=== PATIENT | male | born 1980 | race Caucasian/White ===

== ENCOUNTER 2022-04-21 14:44 | Emergency (ER) | payer OTHER, SELFPAY ==
[2022-04-21 14:49] VITALS: BP 127/83; PULSE 90; RESP 16; TEMP 37.1; O2SAT 95
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
--- NOTE | 2022-04-21 15:05 | XRR_ITS ---
PROCEDURE INFORMATION: Exam: XR Left Forearm Exam date and time: 04/21/2022 3:09 PM Age: 41 years old Clinical indication: Injury or trauma; Fall; Blunt trauma (contusions or hematomas); Arm, lower; Left TECHNIQUE: Imaging protocol: Radiologic exam of the Left forearm. Views: 2 views. COMPARISON: No relevant prior studies available. FINDINGS: Bones/joints: Normal. Soft tissues: Normal. XR/XR forearm LT 2V [id number] IMPRESSION: No acute findings.
== END 2022-04-21 15:42 | disposition home or self-care (01) ==
PROVIDERS: Emergency Provider Nurse Practitioner Family; PCP Family Medicine
DX: S56.912A Strain of unspecified muscles, fascia and tendons at forearm level, left arm, initial encounter (principal); V19.3XXA Pedal cyclist (driver) (passenger) injured in unspecified nontraffic accident, initial encounter
CPT/HCPCS: 73090; 99283

== ENCOUNTER 2023-11-09 20:20 | Emergency (ER) | payer OTHER, SELFPAY ==
--- NOTE | 2023-11-09 20:33 | XRR_ITS ---
PROCEDURE INFORMATION: Exam: XR Right Shoulder Exam date and time: 11/09/2023 8:40 PM Age: 43 years old Clinical indication: Injury or trauma; Other: Lifting injury; Other: RT shoulder pain; Additional info: RT shoulder pain after lifting injury TECHNIQUE: Imaging protocol: Radiologic exam of the right shoulder. Views: 2 or more views. COMPARISON: CR XR chest 2V* [id number] 07/26/2021 10:49 AM FINDINGS: Bones/joints: The glenohumeral articulation is grossly intact. 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 Soft tissues: No gross soft tissue abnormality. XR/XR shoulder RT min 2V* [id number] IMPRESSION: 1. No evidence of fracture or subluxation. If there is concern for labral, muscle or tendon pathology, follow-up outpatient MRI may be helpful.
[2023-11-09 20:56] VITALS: BP 158/93; PULSE 68; RESP 20; TEMP 36.8; O2SAT 97; BMI 26.2
[2023-11-09 21:01] VITALS: BP 154/91; PULSE 69; RESP 18; TEMP 36.8; O2SAT 96
[2023-11-09] MEDS: dexamethasone 10 mg/mL INJ IM (22:40)
[2023-11-09] MEDS: ketorolac 60 mg/2 mL INJ IM (22:41)
[2023-11-09 23:01] VITALS: PULSE 69; RESP 18; TEMP 36.8; O2SAT 96
[2023-11-09] MEDS: cyclobenzaprine 10 mg Tablet PO (23:06)
[2023-11-09 23:33] VITALS: BP 154/91; PULSE 69; RESP 18; TEMP 36.8; O2SAT 96
--- NOTE | 2023-12-02 22:42 | ED_ITS ---
HPI - Extremity Problem General: Chief complaint: Extremity Injury, Upper Stated complaint: rt shoulder inj Time Seen by Provider: 11/09/23 22:19 Source: patient Mode of arrival: ambulatory Limitations: no limitations History of Present Illness: Patient is a 43-year-old male who presents to the emergency department complaining of right shoulder pain onset 1 day. Patient states he injured in a workout, however pain did not occur initially and gradually worsened after the workout. Does not report taken anything for symptoms. He still has range of motion, however states any overhead lifting exacerbates his pain. Also is noting some numbness down the right arm. Pain rated at an 8/10 at this time. No other symptoms to report. MD Complaint: joint pain Onset (ago): day(s) Pain Consistency: constant Location: right and upper extremity Severity scale (1-10): 8 Radiation: distal Relieving factors: nothing Exacerbating factors: range of motion Associated symptoms: Reports no associated symptoms; Deny chest pain, fever(s) or rash Review of Systems General: Reports: 10 or more systems reviewed and unremarkable except in HPI and below Const: Denies: fever(s) or chills Card: Denies: chest pain Resp: Denies: dyspnea or productive cough GI: Denies: abdominal pain, nausea, vomiting or diarrhea : Denies: flank pain Musc: Reports: joint pain; Denies: neck pain, back pain, extremity pain, extremity swelling, joint swelling, joint redness, joint warmth, limited range of motion or muscle weakness Skin/Breast: Denies: rash Neuro: Reports: numbness in extremities; Denies: headache(s) or weakness in extremities Physical Exam Const: COMMON NORMALS: no acute distress, patient oriented x3, no limitations, healthy appearing, alert and well nourished HENMT: COMMON NORMALS: normocephalic and atraumatic HEAD & SCALP: normocephalic and atraumatic Neck/C-Spine: COMMON NORMALS: full ROM, supple and no meningeal signs Resp: COMMON NORMALS: normal respiratory effort, No use of accessory muscles and clear to auscultation bilaterally AUSCULTATION: clear to auscultation bilaterally Cardio: COMMON NORMALS: regular rate and regular rhythm RATE: regular rate RHYTHM: regular rhythm Extremity: COMMON NORMALS: normal to inspection, full ROM (With pain, specifically overhead lifting of the right arm), capillary refill normal, no joint enlargement and no clubbing, cyanosis or edema NARRATIVE EXTREMITY EXAM: No significant reproducible tenderness to palpation. His distal neurovascular exam is intact. Neuro: COMMON NORMALS: patient oriented x3, moves all extremities, no focal motor deficits and no sensory deficits noted SENSORIUM/ORIENTATION: Yes alert MENINGEAL SIGNS: Yes no meningeal signs Psych: COMMON NORMALS: mental status grossly normal Skin: COMMON NORMALS: no rashes or lesions noted GENERAL SKIN EXAM: no rashes or lesions noted Course Vital Signs: Vital signs: Vital Signs Temperature 98.3 F 11/09/23 23:33 Pulse Rate 69 11/09/23 23:33 Respiratory Rate 18 11/09/23 23:33 Blood Pressure 154/91 11/09/23 23:33 Pulse Oximetry 96 11/09/23 23:33 Oxygen Delivery Me thod Room Air 11/09/23 23:01 MDM - Extremity (Nontraumatic) Medical Decision Making Patient presented for right shoulder pain, thinks that he injured it in a workout. Pain is gradually worsened. X-ray of the right shoulder did not demonstrate any fracture or dislocation, however cannot rule out any tendinopathy or underlying ligamentous injury at this time. He does report some improvement after receiving Toradol, steroid, and muscle laxer here in the emergency department, and will send prescription for muscle relaxer and Toradol to take at home. He is instructed to gently increase his range of motion and follow-up with primary care for an MRI if his symptoms persist. Otherwise reasons to return were discussed and he will be discharged home at this time. Lab Data Radiology Impressions Shoulder X-Ray 11/09/23 20:33 IMPRESSION: 1. No evidence of fracture or subluxation. If there is concern for labral, muscle or tendon pathology, follow-up outpatient MRI may be helpful. All radiology interpretation(s) finalized by discharge Discharge Plan Discharge Patient Disposition: Home Clinical Impression: Right shoulder strain Condition: Stable Prescriptions: New cyclobenzaprine 10 mg tablet 10 mg PO TID Qty: 15 0RF ketorolac 10 mg tablet 10 mg PO Q8H PRN (Reason: pain) Qty: 15 0RF No Action montelukast 10 mg tablet 10 mg PO DAILY omeprazole 20 mg tablet,delayed release (DR/EC) 20 mg PO DAILY cetirizine [Zyrtec] 10 mg tablet 10 mg PO DAILY PRN losartan 50 mg tablet 50 mg PO DIRECTED Rx Instructions: One tablet every other day levalbuterol tartrate [Xopenex HFA] 45 mcg/actuation HFA aerosol inhaler 2 inh inhalation Q6H Discharge Orders: Discharge ED (Routine); Ordered 11/09/23 Ordered By: Basil Benton Referrals: Arsh Tolliver MD [Primary Care Provider] - Discharge Diet: Usual diet Discharge Activity: Increase activity as tolerated Patient Instructions: Pain Management Activity Restrictions/Additional Instructions: Take medications as prescribed. Gentle range of motion exercises as tolerated. If you continue to have pain, follow-up with primary care for further imaging such as MRI. Return with any new or worsening symptoms you have. Coding Level of Care Code ED Engine Lathe Set Up Operator Tool for Davy Wilder
== END 2023-11-09 23:33 | disposition home or self-care (01) ==
PROVIDERS: Emergency Provider Physician Assistant; PCP Family Medicine
DX: S46.911A Strain of unspecified muscle, fascia and tendon at shoulder and upper arm level, right arm, initial encounter (principal); X50.9XXA Other and unspecified overexertion or strenuous movements or postures, initial encounter; Y93.B9 Activity, other involving muscle strengthening exercises
CPT/HCPCS: 73030; 96372; 99284; J1100; J1885

== ENCOUNTER 2023-12-04 14:24 | Outpatient (RCR) | payer OTHER, SELFPAY | END 2023-12-18 23:59 | disposition home or self-care (01) | LOC: SPT 14:24 | PROVIDERS: PCP Family Medicine; Visit Provider Family Medicine | DX: M54.12 Radiculopathy, cervical region (principal) | CPT/HCPCS: 97110; 97161 ==

== ENCOUNTER 2024-11-18 10:07 | Outpatient (CLI) | payer OTHER, SELFPAY ==
[2024-11-18 10:28] VITALS: PULSE 78; RESP 18; O2SAT 97
== END 2024-11-18 10:08 | disposition home or self-care (01) ==
PROVIDERS: PCP Family Medicine; Visit Provider Chiropractor
DX: J45.998 Other asthma (principal)
CPT/HCPCS: 94060